=== PATIENT | female | born 1995 | race Caucasian/White ===

== ENCOUNTER 2017-04-18 18:11 | Emergency (ER) | payer SELFPAY ==
[~2017-04-18] VITALS: Ht 157.5 cm; Wt 71.0 kg
[2017-04-18 19:07] VITALS: Ht 157.5 cm; Wt 71.0 kg
== END 2017-04-19 00:31 | disposition left against medical advice (07) ==
LOC: FTE 18:11
DX: Z53.21 Procedure and treatment not carried out due to patient leaving prior to being seen by health care provider (principal)

== ENCOUNTER 2017-04-19 09:56 | Emergency (ER) | payer MEDICAID ==
[~2017-04-19] VITALS: Wt 78.0 kg
--- NOTE | 2017-04-19 10:43 | ERD ---
ER Documentation Chief Complaint Chief Complaint morris ear pain HPI Otherwise healthy 21-year-old female presenting with a chief complaints of productive cough, pharyngitis, and bilateral ear discomfort 3 days. Yellow sputum with cough. Patient is here with daughter who has unilateral ear discomfort and no other symptoms. Patient denies fever, change in voice, dyspnea, dysphagia, chest pain, headache, neck stiffness. Has taken with Motrin with moderate relief. Patient has no other complaints and describes no other associated manifestations. Nursing notes have been reviewed and are consistent with history given. ROS All systems reviewed and are negative except as per history of present illness. Medications Home Meds No Active Prescriptions or Reported Meds Allergies Allergies: Coded Allergies: No Known Allergies (Verified Allergy, Mild, 04/19/17) PMhx/Soc Medical and Surgical Hx: pt denies Medical Hx, pt denies Surgical Hx History of Surgery: No Anesthesia Reaction: No Hx Neurological Disorder: No Hx Respiratory Disorders: No Hx Cardiac Disorders: No Hx Psychiatric Problems: No Hx Miscellaneous Medical Probl: No Hx Alcohol Use: No Hx Substance Use: No Hx Tobacco Use: No Smoking Status: Never smoker Physical Exam Vitals Vital Signs Date Time Temp Pulse Resp B/P Pulse Ox O2 Delivery O2 Flow Rate FiO2 04/19/17 09:58 98.2 78 18 100/56 99 Physical Exam Const: Well-appearing 21-year-old female in NAD Head: Atraumatic Eyes: Normal Conjunctiva ENT: Erythematous oropharynx with postnasal drip visualized. Normal External Ears, Nose and Mouth. No pain with movement of the tragus bilaterally. No mastoid tenderness. Unremarkable TMs with light cone reflex visualized bilaterally. Unremarkable external auditory ear canals. Neck: Full range of motion..~ No meningismus. Resp: No dyspnea, stridor, tripoding or drooling. Good air movement. Clear to auscultation in all lung bilaterally. Cardio: Regular rate and rhythm, no murmurs Skin: No petechiae or rashes Back: No midline or flank tenderness Ext: No cyanosis, or edema Neur: Awake and alert Psych: Normal Mood and Affect Procedures/MDM Otherwise healthy 21-year-old female presenting with a chief complaint of cough , pharyngitis, bilateral ear discomfort 3 days as described in the history. Physical examination was remarkable for erythematous oropharynx with postnasal drip. Pulmonary exam was unremarkable. Most likely diagnosis is viral upper respiratory infection. I have no suspicion for ACS, mastoiditis, malignant otitis externa, pneumonia, other SBI or endangerment of the airway. I recommended supportive therapy. No indication for antibiotics at this time. I have spoke with the patient regarding their condition and future management. They have verbally responded that they understand their status and treatment plan. The patients vitals are stable, and their current condition is appropriate for discharge. The patient will be given discharge instructions with return precautions. Departure Diagnosis: Primary Impression: URI (upper respiratory infection) URI type: unspecified viral URI Qualified Code: J06.9 - Viral upper respiratory tract infection Additional Impressions: Cough Pharyngitis Pharyngitis/tonsillitis etiology: unspecified etiology Qualified Code: J02.9 - Pharyngitis, unspecified etiology Condition: Stable Patient Instructions: Uri, Viral, No Abx (Adult) Additional Instructions: Follow up with your PCP within the next 2 weeks for a more thorough evaluation and a possible referral to a specialist. Return the the emergency department immediately if symptoms worsen or change. If you have any questions regarding medications, ask your pharmacist or us before you leave. If any adverse reactions occur while taking your medications, discontinue the treatment and return to the emergency department immediately. Take your medications as directed. ASHER OLGUIN PA-C Apr 19, 2017 10:43
== END 2017-04-19 11:05 | disposition home or self-care (01) ==
LOC: FTE 09:56
DX: J06.9 Acute upper respiratory infection, unspecified (principal)
CPT/HCPCS: 99282

== ENCOUNTER 2017-04-21 10:36 | Emergency (ER) | payer MEDICAID ==
[~2017-04-21] VITALS: Ht 165.1 cm; Wt 68.4 kg
[2017-04-21 10:40] VITALS: Ht 165.1 cm; Wt 68.4 kg
[2017-04-21] MEDS ORDERED: ALBUTEROL 0.083% (NEB) 2.5 MG/3 ML AMP HHN STA (12:45)
[2017-04-21] MEDS ORDERED: ACETAMINOPHEN 500 MG TAB PO STA (12:45)
[2017-04-21] MEDS ORDERED: IPRATROPIUM (NEB) 0.5 MG/2.5 ML AMP HHN ONE (13:00)
[2017-04-21] MEDS ORDERED: IBUPROFEN 800 MG TAB PO ONE (13:00)
--- NOTE | 2017-04-21 13:41 | RADRPT ---
PROCEDURE: XR Chest. CLINICAL INDICATION: Cough and fever TECHNIQUE: A single portable view of the chest was obtained. COMPARISON: None FINDINGS: The cardiomediastinal silhouette is within normal limits. Questionable subtle ill-defined air space disease in the right lung base is seen. The remaining lungs and pleural spaces are clear. The soft tissues and osseous structures are unremarkable. IMPRESSION: Questionable subtle right basilar air space disease which may represent a developing infiltrate. A s hort interval follow-up is suggested. RPTAT: HPNM Physician Vale Date Time Electronically viewed and signed by Physician Vale on 04/21/2017 13:41 /
[2017-04-21] MEDS ORDERED: PRED20TA PO (13:56)
[2017-04-21] MEDS ORDERED: ALBU8.5H3 INH (13:56)
[2017-04-21] MEDS ORDERED: LEVO750T25 PO (13:56)
--- NOTE | 2017-04-21 14:18 | ERD ---
ER Documentation Chief Complaint Chief Complaint Complains of fever since last night HPI 21-year-old female complaining of fever cough. Patient took Tylenol and ibuprofen yesterday but no medications today. Patient has had episodes of vomiting secondary to cough. Denies abdominal pain. Denies change in urination or bowel movement. Feels short of breath. No hemoptysis. Medical history is asthma. NKDA. Surgical history: Denies. Social history smokes marijuana ROS All systems reviewed and are negative except as per history of present illness. Medications Home Meds Active Scripts Albuterol Sulfate* (Proair HFA*) 8.5 Gm Hfa.aer.ad, 2 PUFF INH Q4, #1 INHALER Prov:ALESIA DAVID PA-C 04/21/17 Prednisone* (Prednisone*) 20 Mg Tab, 40 MG PO DAILY for 4 Days, TAB Prov:ALESIA DAVID PA-C 04/21/17 Levofloxacin* (Levaquin*) 750 Mg Tablet, 750 MG PO DAILY for 5 Days, TAB Prov:ALESIA DAVID PA-C 04/21/17 Allergies Allergies: Coded Allergies: No Known Allergies (Verified Allergy, Mild, 04/19/17) PMhx/Soc History of Surgery: No Anesthesia Reaction: No Hx Neurological Disorder: No Hx Respiratory Disorders: Yes (hx of asthma) Hx Cardiac Disorders: No Hx Psychiatric Problems: No Hx Miscellaneous Medical Probl: No Hx Alcohol Use: Yes (occassional) Hx Substance Use: No Hx Tobacco Use: Yes Smoking Status: Current some day smoker Physical Exam Vitals Vital Signs Date Time Temp Pulse Resp B/P Pulse Ox O2 Delivery O2 Flow Rate FiO2 04/21/17 12:56 100 20 21 04/21/17 10:40 101.8 114 20 124/74 98 Physical Exam GENERAL: The patient is well-appearing, well-nourished, in no acute distress HEENT: Atraumatic. Conjunctivae are pink. Pupils equal, round, and reactive to light. There is no scleral icterus. Tympanic membranes clear bilaterally. Oropharynx clear. No nystagmus or photophobia. NECK: C-spine is soft and supple. There is no meningismus. There is no cervical lymphadenopathy. CHEST: Coarse breath sounds heard bilaterally. No retractions. No wheezing. HEART: Regular rate and rhythm. No murmurs, clicks, rubs or gallops. No S3 or S4. ABDOMEN:Soft, nontender and nondistended. Good bowel sounds. No rebound or guarding. No gross peritonitis. No gross organomegaly or masses. No Roberson sign or McBurney point tenderness. Results 24 hrs Current Medications Medications (Trade) Dose Ordered Sig/Courtney Route PRN Reason Start Time Stop Time Status Last Admin Dose Admin Acetaminophen (Tylenol Tab) 1,000 mg ONCE STAT PO 04/21/17 12:45 04/21/17 12:47 DC 04/21/17 12:53 Ibuprofen (Motrin) 800 mg ONCE ONCE PO 04/21/17 13:00 04/21/17 13:01 DC 04/21/17 12:52 Albuterol (Proventil 0.083% (Neb)) 2.5 mg ONCE STAT N 04/21/17 12:45 04/21/17 12:47 DC 04/21/17 12:55 Ipratropium [place] (Atrovent 0.02% (Neb)) 0.5 mg ONCE ONCE N 04/21/17 13:00 04/21/17 13:01 DC 04/21/17 12:55 Procedures/MDM DIAGNOSTIC IMAGING REPORT Patient: ORALIA BOYER : 1995 Age: 21 Sex: F MR #: [id number] DOS: 04/21/17 1245 Ordering MD: MICHELLE DAVID PA-C Location: [facility] Room/Bed: PROCEDURE: XR Chest. CLINICAL INDICATION: Cough and fever TECHNIQUE: A single portable view of the chest was obtained. COMPARISON: None FINDINGS: The cardiomediastinal silhouette is within normal limits. Questionable subtle ill-defined air space disease in the right lung base is seen. The remaining lungs and pleural spaces are clear. The soft tissues and osseous structures are unremarkable. IMPRESSION: Questionable subtle right basilar air space disease which may represent a developing infiltrate. A short interval follow-up is suggested. ER Course: Albuterol and Atrovent given. Ibuprofen and Tylenol given in ED. MDM: 21-year-old female complaining of productive cough. Patient has fever. Patient has concerning findings for early pneumonia on chest x-ray. Exam is concerning as well. Patient will be discharged with antibiotics and recommendations for close follow-up. I have low suspicion for respiratory distress or hypoxia. Patient's oxygen saturation is 98% on room air and there are no retractions appreciated on exam. A low suspicion for sepsis as patient is nontoxic-appearing. I have low suspicion for meningitis or bacterial HEENT exam. I have low suspicion for acute abdomen. Patient is discharged with antibiotics and steroids and told to follow-up with primary care within 1-2 days for close evaluation. All questions answered discharge Departure Diagnosis: Primary Impression: PNA (pneumonia) Additional Impression: Fever Condition: Stable Patient Instructions: Fever Control (Adult), Pneumonia (Adult) Referrals: [facility] YOU HAVE RECEIVED A MEDICAL SCREENING EXAM AND THE RESULTS INDICATE THAT YOU DO NOT HAVE A CONDITION THAT REQUIRES URGENT TREATMENT IN THE EMERGENCY DEPARTMENT. FURTHER EVALUATION AND TREATMENT OF YOUR CONDITION CAN WAIT UNTIL YOU ARE SEEN IN YOUR DOCTORS OFFICE WITHIN THE NEXT 1-2 DAYS. IT IS YOUR RESPONSIBILITY TO MAKE AN APPOINTMENT FOR FOLOW-UP CARE. IF YOU HAVE A PRIMARY DOCTOR --you should call your primary doctor and schedule an appointment IF YOU DO NOT HAVE A PRIMARY DOCTOR YOU CAN CALL OUR PHYSICIAN REFERRAL HOTLINE AT IF YOU CAN NOT AFFORD TO SEE A PHYSICIAN YOU CAN CHOSE FROM THE FOLLOWING [facility] [address] [facility] [facility] [address] [facility] [facility] [address] [facility] [facility] [address] [facility]. [facility] [address] [facility] [facility]. [address] Additional Instructions: FOLLOW UP WITH YOUR PRIMARY CARE PHYSICIAN TOMORROW.Return to this facility if you are not improving as expected. ALESIA DAVID PA-C Apr 21, 2017 14:18
[2017-04-21 14:25] VITALS: BP 109/58; PULSE 77; RESP 20; TEMP 98.8
== END 2017-04-21 14:25 | disposition home or self-care (01) ==
LOC: FTE 10:36
DX: J18.9 Pneumonia, unspecified organism (principal); J45.909 Unspecified asthma, uncomplicated; F17.210 Nicotine dependence, cigarettes, uncomplicated; R11.10 Vomiting, unspecified; R05 Cough
CPT/HCPCS: 71010; 94664; Z7502; Z7610

== ENCOUNTER 2017-06-12 10:07 | Emergency (ER) | END 2017-06-12 16:43 | disposition home or self-care (01) ==

== ENCOUNTER 2018-01-31 10:40 | Emergency (ER) | END 2018-01-31 14:53 | disposition home or self-care (01) ==

== ENCOUNTER 2018-10-07 15:04 | Emergency (ER) | payer MEDICAID, OTHER ==
[~2018-10-07] VITALS: Ht 157.5 cm; Wt 61.7 kg
[~2018-10-07 15:04] MED LIST: ACET325T33 PO; ALBU8.5H8 INH; CIPR-193 PO; ERYT1OIN6 LEFT EYE; HYDR-4011 PO; IBUP-1542 PO; LEVO750T25 PO; ORPH100T PO; PRED20TA PO; RANI150T35 PO
[2018-10-07 15:10] VITALS: BP 151/78; PULSE 90; RESP 18; Ht 157.5 cm; Wt 61.7 kg
[2018-10-07] MEDS ORDERED: ACYC5CRE7 TOP (16:13)
--- NOTE | 2018-10-07 16:26 | ERD ---
ER Documentation Chief Complaint Chief Complaint BLISTER ON LIP X 3 DAYS HPI 23-year-old female with a history of risky behaviors presents with lesion on her lip for the past week. She states she was recently hospitalized for drug abuse and psychotic behaviors. Since her hospitalization she is been adequately hydr ated and a lesion on her lower lip has formed. He states that the lesion has grown slightly and is very painful 7 out of 10 stinging pain. She had she denies a history of similar lesion. She states that nothing makes the pain lessen or worsen. She denies any other lesions on her body. She denies any fevers, chills, or other signs of systemic infection. Reports a history of ri beba behavior such as illicit drug use and excessive alcohol use. ROS All systems reviewed and are negative except as per history of present illness. Medications Home Meds Active Scripts Acyclovir* (Zovirax* Crm) 5%-5 Gm Cream.gm., 1 APPLIC TOP 5 TIMES DAILY, #1 TUB Prov:LISE MOHR PA-C 10/07/18 Ciprofloxacin Hcl* (Ciprofloxacin Hcl*) 250 Mg Tablet, 250 MG PO BID for 3 Days, #6 TAB Prov:BRUNILDA ANDERSON MD 06/18/18 Ranitidine Hcl* (Zantac*) 150 Mg Tablet, 150 MG PO BID PRN for EPIGASTRIC PAIN, #10 TAB Prov:BRUNILDA ANDERSON MD 06/18/18 Acetaminophen* (Tylenol*) 325 Mg Tablet, 2 TAB PO Q6 PRN for PAIN AND OR ELEVATED TEMP, #20 TAB Prov:BRUNILDA ANDERSON MD 06/18/18 Erythromycin Base (Erythromycin) 1 Gm Oint...g., 1 APPLIC LEFT EYE QID for 7 Days Prov:NIEVES ANGELO PA-C 01/31/18 Ibuprofen* (Motrin*) 600 Mg Tab, 600 MG PO Q6, #30 TAB Prov:NIEVES ANGELO PA-C 01/31/18 Hydrocodone/Acetaminophen ([place] 5-325 Tablet) 1 Each Tablet, 1 TAB PO Q6H PRN for PAIN, #12 TAB Prov:NIEVES ANGELO PA-C 01/31/18 Hydrocodone/Acetaminophen ([place] 5-325 Tablet) 1 Each Tablet, 1 TAB PO Q6H PRN for PAIN, #7 TAB Prov:WAN LOPEZ 06/12/17 Orphenadrine Citrate (Norflex) 100 Mg Tablet.sa, 100 MG PO BID for 7 Days, TAB.SA Prov:WAN LOPEZ 06/12/17 Ibuprofen* (Motrin*) 600 Mg Tab, 600 MG PO Q6, #30 TAB Prov:WAN LOPEZ Ezio 06/12/17 Albuterol Sulfate* (Proair HFA*) 8.5 Gm Hfa.aer.ad, 2 PUFF INH Q4, #1 INHALER Prov:ALESIA DAVID PA-C 04/21/17 Prednisone* (Prednisone*) 20 Mg Tab, 40 MG PO DAILY for 4 Days, TAB Prov:ALESIA DAVID PA-C 04/21/17 Levofloxacin* (Levaquin*) 750 Mg Tablet, 750 MG PO DAILY for 5 Days, TAB Prov:ALESIA DAVID PA-C 04/21/17 Allergies Allergies: Coded Allergies: No Known Allergies (Verified Allergy, Mild, 01/31/18) PMhx/Soc History of Surgery: No Anesthesia Reaction: No Hx Neurological Disorder: No Hx Respiratory Disorders: Yes (hx of asthma) Hx Cardiac Disorders: No Hx Psychiatric Problems: No Hx Miscellaneous Medical Probl: No Hx Alcohol Use: Yes (occassional) Hx Substance Use: Yes (MARIJUANA) Hx Tobacco Use: No Smoking Status: Never smoker FmHx Family History: diabetes Physical Exam Vitals Vital Signs Date Temp Pulse Resp B/P (MAP) Pulse Ox O2 O2 Flow FiO2 Time Delivery Rate 10/07/18 98.2 90 18 151/78 98 15:10 (102) Physical Exam Const: No acute distress Head: NCAT ENT: Mouth: crusty, brown 5 cm lesion located on lower lip. White elevated bump located on lower lip. Entire mid lower lip is tender. Gums clear and pink. Throat: pink and moist Skin: pt body covered with tattoos, no other acute lesions noted Neur: Awake and alert Psych: Normal Mood and Affect Procedures/MDM ED COURSE: The patient was stable throughout ED course. I kept the patient and/or family informed of laboratory and diagnostic imaging results throughout the ED course. MEDICAL DECISION MAKING: Patient is a 23-year-old female with a history of risky behavior such as illicit drug use and excessive alcohol use. H&P not c/w emergent process. Low suspicion for anaphylaxis, scabies, SJS/TEN, TSS, Lyme Disease, syphilis, RMSF, shingles, disseminated gonorrhea chlamydia, DIC, TTP, ITP, erythema multiforme, sepsis, cellulitis, necrotizing fasciitis, gangrene, meningococcemia, allergic contact dermatitis, urticaria, eczema, tinea infection, or other emergent conditions. Vital signs were reviewed. Patient is afebrile. Patient was not hypoxic. Patient was hemodynamically stable. PRESCRIPTION: Acyclovir DISCHARGE: At this time, patient is stable for discharge and outpatient management. I have instructed the patient to follow-up with his/her primary care physician in 1-2 days. I have discussed with the patient the possibility of needing to see a specialist for further workup and imaging studies if symptoms persist. I have instructed the patient to promptly return to the ER for any new or worsening symptoms including increased pain, fever, nausea, vomiting, weakness or LOC. The patient and/or family expressed understanding of and agreement with this plan. All questions were answered. Home care instructions were provided. Disclaimer: Inadvertent spelling and grammatical errors are likely due to EHR/dictation software use and do not reflect on the overall quality of patient care. Also, please note that the electronic time recorded on this note does not necessarily reflect the actual time of the patient encounter. Departure Diagnosis: Primary Impression: Herpes Condition: Fair Patient Instructions: Herpes Additional Instructions: Drink plenty of fluids, avoid lip to skin contacts, avoid illicit drug use, and risky behaviors Call your primary care doctor TOMORROW for an appointment during the next 1-2 days.See the doctor sooner or return here if your condition worsens before your appointment time. LISE MOHR PA-C Oct 07, 2018 16:26
== END 2018-10-07 16:26 | disposition home or self-care (01) ==
LOC: FTE 15:04
DX: B00.9 Herpesviral infection, unspecified (principal); J45.909 Unspecified asthma, uncomplicated
CPT/HCPCS: 99283

== ENCOUNTER 2018-10-09 04:53 | Emergency (ER) | payer MEDICAID ==
[~2018-10-09] VITALS: Ht 162.6 cm; Wt 62.1 kg
[~2018-10-09 04:53] MED LIST changes: +ACYC5CRE7 TOP
[2018-10-09 04:56] VITALS: Ht 162.6 cm; Wt 62.1 kg
[2018-10-09] MEDS ORDERED: SODIUM CHLORIDE 0.9% 1L BAG IV* STA (04:58)
[2018-10-09] MEDS ORDERED: IBUP-1982 PO (05:18)
[2018-10-09] MEDS ORDERED: MINE50OI TP (05:18)
[2018-10-09] MEDS ORDERED: BENZ1SOL TP (05:19)
[2018-10-09] MEDS ORDERED: KETOROLAC 30 MG INJ IV STA (05:38)
[2018-10-09] MEDS ORDERED: TRAM50TA2 PO (05:42)
[2018-10-09] MEDS ORDERED: MUPI22OI2 TOP (05:42)
[2018-10-09] MEDS ORDERED: AMOX1TAB10 PO (05:42)
--- NOTE | 2018-10-09 05:44 | ERD ---
ER Documentation Chief Complaint Chief Complaint fever, chills, ARANDA with mouth pain x 3 days HPI Is a 23-year-old female coming with fevers and chills with mouth pain for 3 days. She was seen here few days ago and diagnosed with herpetic infection of her lip. She says since then is gotten crusted and erythematous around it she also complains of sore throat. Denies any nausea vomiting. Denies any other current complaints. ROS All systems reviewed and are negative except as per history of present illness. Medications Home Meds Active Scripts Tramadol HCl (Tramadol HCl) 50 Mg Tablet, 50 MG PO Q4 PRN for PAIN, #20 TAB Prov:JACINDAEVEMCKENNA S. 10/09/18 Mupirocin* (Bactroban*) 2% -22 Gram Oint...g., 1 APPLIC TOP BID for 7 Days, EA Prov:JACINDAEVEMCKENNA S. 10/09/18 Amoxicillin/Potassium Clav (Amox-Clav 875-125 mg Tablet) 875-125 mg Tab, 1 TAB PO BID for 7 Days, #14 TAB Prov:CARLOSJANETMCKENNA S. 10/09/18 Albuterol Sulfate* (Proair HFA*) 8.5 Gm Hfa.aer.ad, 2 PUFF INH Q4, #1 INHALER Prov:ALESIA DAVID PA-C 04/21/17 Reported Medications Benzalkonium Chloride (Cold Sore Treatment) 1 Each Kelly.w.appl, 1 EACH TP 10/09/18 Mineral Oil/Pet Hy-Phl (Aquaphor Healing Ointment) 50 Gm Oint..gm., 1 APPLIC TP, TUB 10/09/18 Ibuprofen* (Ibuprofen*) 200 Mg Capsule, 800 MG PO QID, CAP 10/09/18 Discontinued Scripts Acyclovir* (Zovirax* Crm) 5%-5 Gm Cream.gm., 1 APPLIC TOP 5 TIMES DAILY, #1 TUB Prov:LISE MOHR PA-C 10/07/18 Ciprofloxacin Hcl* (Ciprofloxacin Hcl*) 250 Mg Tablet, 250 MG PO BID for 3 Days, #6 TAB Prov:BRUNILDA ANDERSON MD 06/18/18 Ranitidine Hcl* (Zantac*) 150 Mg Tablet, 150 MG PO BID PRN for EPIGASTRIC PAIN, #10 TAB Prov:BRUNILDA ANDERSON MD 06/18/18 Acetaminophen* (Tylenol*) 325 Mg Tablet, 2 TAB PO Q6 PRN for PAIN AND OR ELEV ATED TEMP, #20 TAB Prov:BRUNILDA ANDERSON MD 06/18/18 Erythromycin Base (Erythromycin) 1 Gm Oint...g., 1 APPLIC LEFT EYE QID for 7 Days Prov:NIEVES ANGELO PA-C 01/31/18 Ibuprofen* (Motrin*) 600 Mg Tab, 600 MG PO Q6, #30 TAB Prov:NIEVES ANGELO PA-C 01/31/18 Hydrocodone/Acetaminophen ([place] 5-325 Tablet) 1 Each Tablet, 1 TAB PO Q6H PRN for PAIN, #12 TAB Prov:NIEVES ANGELO PA-C 01/31/18 Hydrocodone/Acetaminophen ([place] 5-325 Tablet) 1 Each Tablet, 1 TAB PO Q6H PRN for PAIN, #7 TAB Prov:WAN LOPEZ 06/12/17 Orphenadrine Citrate (Norflex) 100 Mg Tablet.sa, 100 MG PO BID for 7 Days, TAB.SA Prov:WAN LOPEZ 06/12/17 Ibuprofen* (Motrin*) 600 Mg Tab, 600 MG PO Q6, #30 TAB Prov:WAN LOPEZ 06/12/17 Prednisone* (Prednisone*) 20 Mg Tab, 40 MG PO DAILY for 4 Days, TAB Prov:ALESIA DAVID PA-C 04/21/17 Levofloxacin* (Levaquin*) 750 Mg Tablet, 750 MG PO DAILY for 5 Days, TAB Prov:ALESIA DAVID PA-C 04/21/17 Allergies Allergies: Coded Allergies: No Known Allergies (Unverified Allergy, Mild, 10/09/18) PMhx/Soc History of Surgery: No Anesthesia Reaction: No Hx Neurological Disorder: No Hx Respiratory Disorders: Yes (hx of asthma) Hx Cardiac Disorders: No Hx Psychiatric Problems: No Hx Miscellaneous Medical Probl: No Hx Alcohol Use: Yes (occassional) Hx Substance Use: Yes (MARIJUANA) Hx Tobacco Use: No Smoking Status: Never smoker Physical Exam Vitals Vital Signs Date Temp Pulse Resp B/P (MAP) Pulse Ox O2 O2 Flow FiO2 Time Delivery Rate 10/09/18 Nasal 05:22 Cannula 10/09/18 102.2 113 20 128/73 96 04:56 (91) Physical Exam Const: No acute distress Head: Atraumatic Eyes: Normal Conjunctiva ENT: Right peritonsillar exudate with no uvular deviation Neck: Full range of motion. No meningismus. Resp: Clear to auscultation bilaterally Cardio: Regular rate and rhythm, no murmurs Abd: Soft, non tender, non distended. Normal bowel sounds Skin: Erythema indurated and crusted lesion on bottom lip and midline Back: No midline or flank tenderness Ext: No cyanosis, or edema Neur: Awake and alert Psych: Normal Mood and Affect Result Diagram: 10/09/18519 Results 24 hrs Laboratory Tests Test 10/09/18 05:06 10/09/18 05:14 10/09/18 05:20 10/09/18 05:28 Urine Color YELLOW Urine Clarity CLEAR Urine pH 6.0 Urine Specific 1.010 [place] Urine Ketones NEGATIVE mg/dL Urine Nitrite NEGATIVE mg/dL Urine Bilirubin NEGATIVE mg/dL Urine Urobilinogen NEGATIVE mg/dL Urine Leukocyte NEGATIVE Octavio/ul Esterase Urine Microscopic 0 /HPF RBC Urine Microscopic 1 /HPF WBC Urine Hemoglobin 1+ mg/dL Urine Glucose NEGATIVE mg/dL Urine Total Protein NEGATIVE mg/dl POC Beta HCG, NEGATIVE Qualitative White Blood Count 8.2 10^3/ul Red Blood Count 4.80 10^6/ul Hemoglobin 13.4 g/dl Hematocrit 40.5 % Mean Corpuscular 84.4 fl Volume Mean Corpuscular 27.9 pg Hemoglobin Mean Corpuscular 33.1 g/dl Hemoglobin Concent Red Cell 14.2 % Distribution Width Platelet Count 225 10^3/UL Mean Platelet 11.3 fl Volume Immature 0.400 % Granulocytes % Neutrophils % 74.2 % Lymphocytes % 11.3 % Monocytes % 11.7 % Eosinophils % 2.2 % Basophils % 0.2 % Nucleated Red Blood 0.0 /100WBC Cells % Immature 0.030 10^3/ul Granulocytes # Neutrophils # 6.1 10^3/ul Lymphocytes # 0.9 10^3/ul Monocytes # 1.0 10^3/ul Eosinophils # 0.2 10^3/ul Basophils # 0.0 10^3/ul Nucleated Red Blood 0.0 10^3/ul Cells # POC Venous Lactate 1.4 mmol/L Current Medications Medications Dose Sig/Courtney Start Time Status Last (Trade) Ordered Route PRN Stop Time Admin Dose Reason Admin Sodium 1,870 ml BOLUS OVER 2 10/09/18 DC 10/09/18 Chloride HOURS STAT 04:58 10/09/18 05:23 (NS) IV* 05:06 Ketorolac 30 mg ONCE STAT 10/09/18 DC Tromethamine IV 05:38 10/09/18 (Toradol) 05:40 Ceftriaxone 50 ml @ ONCE ONCE 10/09/18 Sodium 100 mls/hr IVPB 06:00 10/09/18 06:29 Procedures/MDM EKG: Rate/Rhythm: [Normal Sinus Rhythm] QRS, ST, T-waves: [No changes consistent w/ acute ischemia] Impression: [No evidence of ischemia or arrhythmia] Chest X-ray 1V Interpreted by me: Soft Tissue: No acute abnormalities Bones: No acute abnormalities Mediastinum/Cardiac Silhouette/Lungs: [No acute abnormalities] Medical decision makin-year-old female with a history of strep pharyngitis along with likely MRSA related infection to her lip. She was initially a code sepsis, however lactic was negative and her vital signs normalized. I feel she stable for trial of outpatient management. Discharged home with Augmentin for the strep, mupirocin for lip infection. Follow-up with PCP. Return for worsening symptoms. Departure Diagnosis: Primary Impression: Fever Fever type: unspecified Qualified Codes: R50.9 - Fever, unspecified Condition: Stable Patient Instructions: [place] Skin Infection, Suspected Or Confirmed, Pharyngitis, Strep (Presumed) MCKENNA KILPATRICK Oct 09, 2018 05:44
[2018-10-09] MEDS ORDERED: CEFTRIAXONE 1 GM/50 ML (PMX) 50 ML IVPB ONE (06:00)
[2018-10-09 07:03] VITALS: BP 116/58; PULSE 76; RESP 20
== END 2018-10-09 07:05 | disposition home or self-care (01) ==
LOC: E/R 04:53
DX: R50.9 Fever, unspecified (principal); J45.909 Unspecified asthma, uncomplicated
CPT/HCPCS: 36415; 71045; 80053; 81001; 81025; 83605; 84484; 85025; 85610; 85730; 87040; 87086; 93005; 96361; 96365; 96375; J0696; J1885; J7030; Z7502; Z7610

== ENCOUNTER 2018-12-24 18:50 | Emergency (ER) | payer MEDICAID ==
[~2018-12-24] VITALS: Ht 160 cm; Wt 61.7 kg
[~2018-12-24 18:50] MED LIST changes: -ACET325T33 PO; -ACYC5CRE7 TOP; +AMOX1TAB10 PO; +BENZ1SOL TP; -CIPR-193 PO; -ERYT1OIN6 LEFT EYE; -HYDR-4011 PO; -IBUP-1542 PO; +IBUP-1982 PO; -LEVO750T25 PO; +LORA-441 PO; +MINE50OI TP; +MUPI22OI2 TOP; -ORPH100T PO; -PRED20TA PO; -RANI150T35 PO; +TRAM50TA2 PO
[2018-12-24 19:00] VITALS: Ht 160 cm; Wt 61.7 kg
[2018-12-24] MEDS ORDERED: LORAZEPAM 1 MG TAB PO ONE (22:30)
[2018-12-25 00:52] VITALS: BP 136/92; PULSE 96; RESP 18
== END 2018-12-25 00:58 | disposition home or self-care (01) ==
LOC: E/R 18:50
DX: R06.4 Hyperventilation (principal); J45.909 Unspecified asthma, uncomplicated; F17.210 Nicotine dependence, cigarettes, uncomplicated
CPT/HCPCS: 81025; 93005; Z7502; Z7610

== ENCOUNTER 2019-01-24 12:06 | Emergency (ER) | payer MEDICAID ==
[~2019-01-24] VITALS: Ht 162.6 cm; Wt 65.2 kg
[~2019-01-24 12:06] MED LIST changes: -ALBU8.5H8 INH; -AMOX1TAB10 PO; -BENZ1SOL TP; +CYCL10TA7 PO; +FLUT9.9S NASAL; +GUAI5SYR2 PO; +IBUP-1542 PO; -IBUP-1982 PO; -MINE50OI TP; -MUPI22OI2 TOP; +NAPR-985 PO; +PSEU60TA81 PO; -TRAM50TA2 PO
[2019-01-24 12:11] VITALS: BP 122/83; PULSE 66; RESP 16; Ht 162.6 cm; Wt 65.2 kg
[2019-01-24] MEDS ORDERED: IBUPROFEN 600 MG TAB PO ONE (13:00)
== END 2019-01-24 13:40 | disposition home or self-care (01) ==
LOC: FTE 12:06
DX: R07.81 Pleurodynia (principal); J45.909 Unspecified asthma, uncomplicated; F17.210 Nicotine dependence, cigarettes, uncomplicated
CPT/HCPCS: 71045; 71100; Z7502; Z7610